=== PATIENT | female | born 1945 | race Caucasian/White ===

== ENCOUNTER 2017-08-18 08:32 | Emergency (ER) | payer MEDICARE, OTHER ==
[~2017-08-18] VITALS: Ht 170.2 cm; Wt 85.7 kg
[~2017-08-18 08:32] MED LIST: LEXAPRO10 MG PO; ULTRAM50 MG PO; XARELTO20 MG PO; Z.0.LEVOTHYROXINE50 PO; Z.0.OXYBUTYNIN CHLOR PO; Z.0.PROTONIX40 MG PO; [UNRECOGNIZED DRUG - OTHER] PO
[2017-08-18] MEDS ORDERED: MORPHINE SULFATE 4 MG/ML SYR IV STA (08:36)
[2017-08-18] MEDS ORDERED: ONDANSETRON HCL INJ 2 MG/ML VIAL IV STA (08:36)
--- OUTSIDE RECORDS SUMMARY | 2017-08-18 08:36 | XMS REPORT | Clinical Summary ---
Author Author [employer] Address Unknown Phone Unavailable Care Team Providers Care Web Development Director Name Role Phone CristyAlin PCP Allergies Active Allergy Reactions Severity Noted Date Comments Codeine Other (See Comments) High 04/09/2013 INSOMNIA Current Medications Prescription Sig. Disp. Refills Start End Date Status Date pantoprazole (PROTONIX) TK 1 T PO BID 5 12/27/19 Active 40 MG EC tablet 17 levothyroxine (SYNTHROID, TK 1 T PO QD 2 10/06/19 Active LEVOXYL) 50 mcg tablet 17 oxybutynin XL TK 1 T PO QD 2 12/17/19 Active (DITROPAN-XL) 10 MG 24 hr 17 tablet escitalopram (LEXAPRO) 10 TK 1 T PO QD 2 11/08/19 Active MG tablet 17 predniSONE (DELTASONE) 10 TK 2 T PO D FOR 4 DAYS 0 10/25/19 01/11/20 Discontin mg tablet THEN 1 AND 1/2 T D X 4 17 17 ued DAYS THEN 1 T D FOR 4 DAYS THEN STOP Active Problems Problem Noted Date Primary localized osteoarthrosis of right lower leg 05/13/2017 Resolved Problems Problem Noted Date Resolved Date Primary localized osteoarthrosis of right lower leg 01/10/2017 04/01/2017 Encounters Date Type Specialty Care Team Description 07/23/2017 Office Visit Orthopedic Surgery Jimy Donaldson MD Primary localized osteoarthrosis of right lower leg (Primary Dx) 06/12/2017 Refill Neurology Jannet Tay MD 05/13/2017 Office Visit Orthopedic Surgery Jimy Donaldson MD Primary localized osteoarthrosis of right lower leg (Primary Dx) 04/01/2017 Office Visit Orthopedic Surgery Jimy Donaldson MD Primary localized osteoarthrosis of right lower leg (Primary Dx);Mass of right wrist 01/10/2017 Office Visit Orthopedic Surgery Jimy Donaldson MD Primary localized osteoarthrosis of right lower leg (Primary Dx);Chronic pain of right knee 12/11/2016 Hospital Pulmonology Jannet Tay MD Shortness of breath Encounter 12/11/2016 Transcribe Pulmonology Jannet Tay MD Shortness of breath Orders (Primary Dx) 12/03/2016 Trans[facility] Access Jannet Tay MD Shortness of breath Orders (Primary Dx) 11/01/2016 Hospital Radiology Jannet Tay MD Shortness of Encounter breath;Disorders of diaphragm 11/01/2016 [facility] Radiology Jannet Tay MD Shortness of Encounter breath;Disorders of diaphragm 11/01/2016 [facility] Pulmonology Jannet Tay MD Breath Encounter shortness;Disorders of diaphragm 11/01/2016 [facility] Pulmonology Jannet Tay MD Breath Orders shortness;Disorders of diaphragm 10/30/2016 [facility] Jannet Stevens MD Shortness of breath Orders (Primary Dx);Disorders of diaphragm after 08/17/2016 Social History Tobacco Use Types Packs/Day Years Used Date Never Assessed Sex Assigned at Date Recorded Not on file Last Filed Vital Signs Not on file Plan of Treatment Date Type Specialty Care Team Description 11/19/2017 Office Visit Orthopedic Surgery Jimy Donaldson MD [address] [facility] [address] [place] [id number] Health Maintenance Due Date Last Done Comments COLONOSCOPY 12/17/1993 MAMMOGRAM 12/17/1993 ZOSTER VACCINE 2003 PNEUMOCOCCAL 12/17/2008 POLYSACCHARIDE VACCINE AGE 65 AND OVER PNEUMOCOCCAL-13 12/17/2008 INFLUENZA VACCINE 02/12/2017 Procedures Procedure Name Priority Date/Time Associated Diagnosis Comments IN ARTHROCENTESIS Routine 07/23/2017 Primary localized Results for this ASPIR&/INJ MAJOR JT/BURSA 10:33 AM 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 IN ARTHROCENTESIS Routine 05/13/2017 Primary localized Results for this ASPIR&/INJ MAJOR JT/BURSA 11:43 AM CDT osteoarthrosis of right procedure are in the W/O US lower leg results section. IN ARTHROCENTESIS Routine 04/01/2017 Primary localized Results for this ASPIR&/INJ MAJOR JT/BURSA 11:05 AM CDT osteoarthrosis of right procedure are in the W/O US lower leg results section. IN ARTHROCENTESIS Routine 01/10/2017 Primary localized Results for this ASPIR&/INJ MAJOR JT/BURSA 2:22 PM CDT osteoarthrosis of right procedure are in the W/O US lower leg results section. after 08/17/2016 Results * Large Joint Arthrocentesis (07/23/2017 10:33 AM) Narrative Jimy Donaldson MD 07/23/2017 10:33 AM Large Joint Arthrocentesis Consent given by: patient Site marked: site marked Timeout: Immediately prior to procedure a time out was called to verify the correct patient, procedure, equipment, applications support analyst and site/side marked as required Supporting Documentation Indications: pain Procedure Details Preparation: Patient was prepped and draped in the usual sterile fashion Ultrasound guided: no Platelet Rich Plasma Used: no PRP UsedLocation: knee - R knee Right side: Needle size: 25 G (25 gauge) Approach: anteromedial Right knee medications administered: 1 mL lidocaine 10 mg/mL (1 %); 3 mg betamethasone acetate & sodium phosphate 6 mg/mL Aspirate amount: 0 mL Patient tolerance: patient tolerated the procedure well with no immediate complications * Large Joint Arthrocentesis (05/13/2017 11:43 AM) Narrative Jimy Donaldson MD 05/13/2017 11:43 AM Large Joint Arthrocentesis Consent given by: patient Site marked: site marked Supporting Documentation Indications: pain Procedure Details Preparation: Patient was prepped and draped in the usual sterile fashion Ultrasound guided: no Platelet Rich Plasma Used: no PRP UsedLocation: knee - R knee Right side: Needle size: 22 G Approach: anteromedial Right knee medications administered: 4 mL hyaluronate sodium, stabilized 88 mg/4 mL Aspirate amount: 0 mL Patient tolerance: patient tolerated the procedure well with no immediate complications * Large Joint Arthrocentesis (04/01/2017 11:05 AM) Narrative Jimy Donaldson MD 04/01/2017 11:05 AM Large Joint Arthrocentesis Consent given by: patient Site marked: site marked Timeout: Immediately prior to procedure a time out was called to verify the correct patient, procedure, equipment, applications support analyst and site/side marked as required Supporting Documentation Indications: pain Procedure Details Preparation: Patient was prepped and draped in the usual sterile fashion Ultrasound guided: no Platelet Rich Plasma Used: no PRP UsedLocation: knee - R knee Right side: Needle size: 25 G (25 gauge) Approach: anteromedial Right knee medications administered: 1 mL lidocaine 10 mg/mL (1 %); 3 mg betamethasone acetate & sodium phosphate 6 mg/mL Aspirate amount: 0 mL Patient tolerance: patient tolerated the procedure well with no immediate complications * Large Joint Arthrocentesis (01/10/2017 2:22 PM) Narrative Jimy Donaldson MD 01/10/20172:22 PM Large Joint Arthrocentesis Consent given by: patient Site marked: site marked Timeout: Immediately prior to procedure a time out was called to verify the correct patient, procedure, equipment, applications support analyst and site/side marked as required Supporting Documentation Indications: pain Procedure Details Preparation: Patient was prepped and draped in the usual sterile fashion Ultrasound guided: no Platelet Rich Plasma Used: no PRP UsedLocation: knee - R knee Right side: Needle size: 25 G (25 gauge) Approach: anteromedial Right knee medications administered: 1 mL lidocaine 10 mg/mL (1 %); 3 mg betamethasone acet,sod phos 6 mg/mL Aspirate amount: 0 mL Patient tolerance: patient tolerated the procedure well with no immediate complications * XR Knee 4+ Vw Right (01/10/2017 1:43 PM) Specimen Performing Laboratory [facility] [address] [place] [address] Narrative X-rays of the right knee are done.PA, lateral, oblique, standing AP notch view demonstrate no fracture nor dislocation. X-rays reveal moderate arthritis of the medial compartment. X-rays reveal moderate arthritis of the lateral compartment. X-rays reveal mild arthritis of the patellofemoral compartment. There is medial femoral osteophytes, medial tibial plateau osteophytes, lateral femoral osteophytes, lateral tibial plateau osteophytes and patella osteophytes. * NM Lung Quantitative Differential Function Ventilation / Perfusion (2016 10:11 AM) Specimen Performing Laboratory [facility] [address] [place] [address] Narrative EXAMINATION: NM LUNG QUANTITATIVE DIFFERENTIAL FUNCTION VENTILATION PERFUSION CLINICAL HISTORY: R06 02 Order diagnosis - Shortness of breath Disorders of diaphragm TECHNIQUE: The patient breathed 15-20 mCi of xenon-133 gas through a closed ventilation system while dynamic imaging of the lungs was performed in the posterior and anterior projections. The patient was then injected with 5 mCi of [id number] intravenously, followed by imaging of the lungs in 8 projections. Quantitation was performed using the geometric mean of the anterior and posterior perfusion images. FINDINGS: There is a large, but likely nonsegmental perfusion defect in the medial left upper lobe, also seen on the ventilation images. QUANTITATION: Left Lung=43% Right Lung=57% IMPRESSION: 1.Low probability for pulmonary embolism. 2.Quantitation as above. [facility]-[id number] Procedure Note Interface, Radiology Results Incoming - 11/01/2016 3:52 PM CDT EXAMINATION: NM LUNG QUANTITATIVE DIFFERENTIAL FUNCTION VENTILATION PERFUSION CLINICAL HISTORY: R06 02 Order diagnosis - Shortness of breath Disorders of diaphragm TECHNIQUE: The patient breathed 15-20 mCi of xenon-133 gas through a closed ventilation system while dynamic imaging of the lungs was performed in the posterior and anterior projections. The patient was then injected with 5 mCi of [id number] intravenously, followed by imaging of the lungs in 8 projections. Quantitation was performed using the geometric mean of the anterior and posterior perfusion images. FINDINGS: There is a large, but likely nonsegmental perfusion defect in the medial left upper lobe, also seen on the ventilation images. QUANTITATION: Left Lung=43% Right Lung=57% IMPRESSION: 1.Low probability for pulmonary embolism. 2.Quantitation as above. [facility]-[id number] * FL Fluoroscopy Of Diaphragm No Films (11/01/2016 10:06 AM) Specimen Performing Laboratory [facility] [address] [place] [address] Narrative EXAMINATION:FL FLUOROSCOPY OF DIAPHRAGM NO FILMS CLINICAL HISTORY:R06 02 Order diagnosis - Shortness of breath Disorders of diaphragm COMPARISON:None. TECHNIQUE: Diaphragms were observed under fluoroscopy during quiet and deep breathing and with sniff. FLUOROSCOPIC TIME:2.9 minutes IMAGES:16 FINDINGS: There is prominent elevation of the right hemidiaphragm at baseline. This is anterior only. More posteriorly the right hemidiaphragm is normal in location. There is no significant motion of the elevated portion of the right hemidiaphragm anteriorly. This area demonstrates some paradoxical motion during sniff. More posteriorly, the right hemidiaphragm functions normally during quiet breathing, deep breathing and sniff. There is normal motion of the left hemidiaphragm throughout during quiet breathing, deep breathing and sniff. IMPRESSION: Anterior elevation of the right hemidiaphragm with additional findings as described above. Findings are most suggestive of eventration anteriorly of the right hemidiaphragm. CT can be obtained for confirmation of this finding. Normal-appearing left hemidiaphragm. [facility]-[id number] Procedure Note [facility], Radiology Results Incoming - 11/02/2016 8:34 AM CDT EXAMINATION: FL FLUOROSCOPY OF DIAPHRAGM NO FILMS CLINICAL HISTORY: R06 02 Order diagnosis - Shortness of breath Disorders of diaphragm COMPARISON: None. TECHNIQUE: Diaphragms were observed under fluoroscopy during quiet and deep breathing and with sniff. FLUOROSCOPIC TIME: 2.9 minutes IMAGES: 16 FINDINGS: There is prominent elevation of the right hemidiaphragm at baseline. This is anterior only. More posteriorly the right hemidiaphragm is normal in location. There is no significant motion of the elevated portion of the right hemidiaphragm anteriorly. This area demonstrates some paradoxical motion during sniff. More posteriorly, the right hemidiaphragm functions normally during quiet breathing, deep breathing and sniff. There is normal motion of the left hemidiaphragm throughout during quiet breathing, deep breathing and sniff. IMPRESSION: Anterior elevation of the right hemidiaphragm with additional findings as described above. Findings are most suggestive of eventration anteriorly of the right hemidiaphragm. CT can be obtained for confirmation of this finding. Normal-appearing left hemidiaphragm. [facility]-[id number] after 08/17/2016 Insurance Payer Benefit Subscriber ID Type Phone Address Plan / Group MEDICARE MEDICARE [id number] Medicare [place], [place] PART A AND B [employer] [place] [id number] [place] [address]
[2017-08-18] MEDS ORDERED: MORPHINE SULFATE 2 MG/ML SYR ONE (08:54)
[2017-08-18 09:16] LABS: BASOPHILS % 0.6 % (0.0-1.0); EOSINOPHILS # (AUTO) 0.4 (0.0-0.4); EOSINOPHILS % 5.5 % (0.0-6.0); HEMATOCRIT 39.3 % (34.2-44.1); HEMOGLOBIN 12.1 g/dL (12.0-16.0); LYMPHOCYTES % 27.9 % (18.0-39.1); MEAN CORPUSCULAR HGB CONC 30.8 g/dL (31-35); MONOCYTES # (AUTO) 0.5 (0.2-0.8); MONOCYTES % 7.1 % (4.4-11.3); NEUTROPHILS # (AUTO) 4.1 (2.1-6.9); NEUTROPHILS % 58.6 % (38.7-80.0); PLATELET COUNT 294 x10e3/uL (140-360); RED BLOOD COUNT 5.04 x10e6/uL (3.6-5.1); RED CELL DISTRIBUTION WIDTH 17.9 % (11.7-14.4)
[2017-08-18 09:26] LABS: INR 0.84; PROTHROMBIN TIME 11.9 seconds (11.9-14.5)
[2017-08-18 09:27] LABS: PARTIAL THROMBOPLASTIN TIME 28.6 seconds (23.8-35.5)
[2017-08-18 09:32] LABS: ALANINE AMINOTRANSFERASE 13 IU/L (0-55); ALBUMIN 3.4 g/dL (3.5-5.0); ALKALINE PHOSPHATASE 84 IU/L (40-150); ANION GAP 10.8 mmol/L (8-16); BLOOD UREA NITROGEN 16 mg/dL (7-26); BUN/CREATININE RATIO 23 (6-25); CALCIUM 8.2 mg/dL (8.4-10.2); CARBON DIOXIDE 23 mmol/L (22-29); CHLORIDE 110 mmol/L (98-107); CREATINE KINASE 210 IU/L (29-168); EST GLOMERULAR FILTRATION RATE > 60 ML/MIN (60-); GLUCOSE 84 mg/dL (74-118); POTASSIUM 3.8 mmol/L (3.5-5.1); SODIUM 140 mmol/L (136-145)
--- NOTE | 2017-08-18 09:36 | Diagnostic Imaging Report ---
EXAMINATION: Chest, CHEST SINGLE (PORTABLE) INDICATION: Chest pain COMPARISON: None available FINDINGS: LINES: None. Heart: Normal cardiac silhouette. Vascular: The pulmonary vasculature is within normal limits. Atherosclerotic calcifications of the aortic arch. Mediastinum: No mediastinal, hilar, or axillary mass or lymphadenopathy. Lungs: No parenchymal mass. Airspace opacity in the right lung base. Elevation of the right hemidiaphragm. Pleura: Small right pleural effusion. No pneumothorax. Bones: No acute osseous abnormality. Degenerative changes of the thoracic spine. Postoperative changes of anterior cervical spine fusion are partially visualized. Soft tissues: Normal. Impression: Airspace opacity in the right lung base may represent a developing pneumonia. Signed by: Dr. Nadeem Mohr M.D. on 08/18/2017 9:32 AM
--- NOTE | 2017-08-18 11:35 | Diagnostic Imaging Report ---
EXAM: CT Chest WITH contrast INDICATION: Chest pain COMPARISON: None available TECHNIQUE: Chest was scanned utilizing a multidetector helical scanner from the lung apex through the level of the diaphragm after administration of IV contrast. Coronal and sagittal reconstructions were submitted for interpretation. Protocol: Pulmonary embolus protocol IV CONTRAST: 100 mL of Isovue 370 COMPLICATIONS: None RADIATION DOSE: Total exam DLP: 889.9 mGy*cm. CTDIvol has been reviewed. It is below the limits set by the Radiation Protocol Committee (RPC). FINDINGS: LINES/ TUBES: None. Heart: No cardiomegaly. No pericardial effusion. Vessels: No intraluminal filling defect within the pulmonary arteries to the segmental level. Atherosclerotic calcifications of the thoracic aorta and coronary arteries. The ascending aorta measures 4.6 cm in greatest transverse diameter. No evidence of dissection. Mediastinum: No mediastinal or hilar mass or lymphadenopathy. Normal thyroid. Lungs: No parenchymal mass. No focal consolidation. Normal parenchyma. Pleura: No pleural effusion. No pneumothorax. Elevation of the right hemidiaphragm. Soft tissues: Normal. No axillary mass or lymphadenopathy. Bones: No acute osseous abnormality. Degenerative changes of the thoracic spine. Anterior cervical spine fusion hardware. Adrenal glands: No adrenal nodules.. Abdomen: The partially visualized portions of the upper abdomen are unremarkable. Cholecystectomy. Simple cyst in the right lobe of the liver. IMPRESSION: 1. No evidence of dissection. 2. Aneurysm of the ascending aorta. Signed by: Dr. Nadeem Mohr M.D. on 08/18/2017 11:31 AM
[2017-08-18] MEDS ORDERED: SODIUM CHLORIDE 0.9% 50ML 50 ML ONE (11:45)
[2017-08-18] MEDS ORDERED: IOPAMIDOL 370 MG/ML 200 ML INFUS..BTL INJ ONE (11:45)
--- NOTE | 2017-08-18 16:08 | Consultation ---
DATE OF CONSULTATION: August 18, 2017 CARDIOLOGY CONSULTATION CLINICAL HISTORY: This is a 71-year-old white woman known to me from previous evaluation seen at [facility] because of severe chest pains rated 10 on a scale of 10 lasting for over an hour associated with nausea, but without EKG or chest x-ray changes to be consistent with chest pains. Old records not available for review. According to the patient, she had a stress test many years ago but none recently. She has never had a cardiac catheterization. She denies any exertional chest discomfort. Three weeks ago she had similar pains, but did not come to the emergency room. 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 The pain is similar to the pain she has had before in the right chest, but it is now on the left side. She noticed some tenderness in the left anterior chest. The pain failed to improve until she came to the emergency room and was given morphine. EKG showed no acute changes. Chest x-ray showed right lung pathology, cannot exclude new onset of pneumonia; however, she had no fever. White count was normal at 7000. There is previous history of right lung problems. Hospitalization was recommended, but the patient was reluctant to be admitted wanting to do further testing on outpatient basis due to tax season. PAST MEDICAL HISTORY: Is remarkable for the above-mentioned conditions. FAMILY HISTORY: Please refer to previous records. REVIEW OF SYSTEMS: Negative. PHYSICAL EXAMINATION: GENERAL: She is somewhat overweight. Alert, coherent. CARDIAC: Jugular veins are not distended. S1 and S2 were regular. There is no appreciable murmurs. LUNGS: Clear. ABDOMEN: Soft. Bowel sounds are present. EXTREMITIES: No cyanosis, clubbing or edema. She does have left-sided chest tenderness but this was mild. LABORATORY DATA: Electrocardiogram shows sinus rhythm, borderline left ventricular hypertrophy, nonspecific ST changes. Chest x-ray shows the right lung pathology. White count 7000, hemoglobin 12.1. Platelet count 294,000. INR 6.8. Electrolytes . IMPRESSION 1. Severe, prolonged chest pains associated with nausea radiating to the back, consider coronary artery disease. Initial chest x-ray showed right lung pathology. EKG showed no acute changes. Cardiac enzymes are negative. 2. History of right-sided lung pains for many years with chest x-ray showing opacity in the right lung base with CTA showing no evidence of dissection, aneurysm or pulmonary embolism and no lung masses. 3. Hypothyroidism. 4. Chronic pain using tramadol. 5. Indigestion on Tapazole. RECOMMENDATION: Return to the emergency room for further chest pains. Consider stress test on an outpatient basis with nuclear imaging. Job#: [id number]
== END 2017-08-18 12:25 | disposition home or self-care (01) ==
LOC: ER 08:32
DX: R07.89 Other chest pain (principal); I71.00 Dissection of unspecified site of aorta; J98.4 Other disorders of lung; Z85.3 Personal history of malignant neoplasm of breast
CPT/HCPCS: 36415; 71010; 71275; 80053; 82550; 82553; 84484; 85025; 85610; 85730; 93005; 99284; J2270; J2405; Q9967; 71045

== ENCOUNTER → 2018-06-26 | Outpatient (CLI) | payer MEDICARE, OTHER ==
--- NOTE | 2018-06-26 13:52 | Diagnostic Imaging Report ---
EXAMINATION: PA and lateral views of the chest. COMPARISON: CT chest 08/18/2017 CLINICAL HISTORY: Unspecified asthma DISCUSSION: Lungs remain well-inflated. Unchanged right hemidiaphragmatic elevation with colonic interposition between the liver dome and diaphragm as seen on comparison CT. No focal airspace consolidation, pleural effusion, or pneumothorax. Stable cardiomediastinal contour with tortuosity of the thoracic aorta. Ectasia of the ascending thoracic aorta was noted on the comparison CT scan of the chest. Normal heart size. No overt pulmonary edema. Cervical spine fusion hardware partially visualized. No acute osseous abnormality. IMPRESSION: No acute cardiopulmonary abnormality. Ectatic ascending thoracic aorta seen to better advantage on comparison CTA 08/18/2017. Signed by: Dr. Dani Stroud M.D. on 06/26/2018 1:49 PM
== END ==
LOC: RAD 12:26
PROVIDERS: ATTEND Allergy & Immunology
DX: J45.40 Moderate persistent asthma, uncomplicated (principal)
CPT/HCPCS: 71046

== ENCOUNTER → 2019-04-15 | Outpatient (CLI) | payer MEDICARE, OTHER ==
--- NOTE | 2019-04-15 11:05 | Diagnostic Imaging Report ---
EXAMINATION: CHEST 2 VIEWS INDICATION: Asthma, bronchitis COMPARISON: Chest radiograph of 06/26/2018, chest CTA of 08/18/2017 FINDINGS: LINES/TUBES:None LUNGS:The lungs are well-inflated. Persistent elevation of the right hemidiaphragm anteriorly with colonic interposition between the liver and diaphragm. No focal consolidation or pulmonary edema. PLEURA:No pleural effusion or pneumothorax. MEDIASTINUM:The cardiomediastinal silhouette appears unchanged in size and shape. Atherosclerotic calcifications of the thoracic aorta. BONES/SOFT TISSUES:No acute osseous injury. Partial visualization of cervical spine fusion hardware. ABDOMEN:No free air under the diaphragm. IMPRESSION: No focal pneumonia or pulmonary edema. Signed by: Devora Ahuja MD on 04/15/2019 11:02 AM
== END ==
LOC: RAD 09:46
PROVIDERS: ATTEND Allergy & Immunology
DX: J45.40 Moderate persistent asthma, uncomplicated (principal)
CPT/HCPCS: 71046

== ENCOUNTER → 2019-05-21 | Outpatient (CLI) | payer MEDICARE, OTHER ==
--- NOTE | 2019-05-21 13:03 | Diagnostic Imaging Report ---
Chest, 1 view, 05/21/2019. History: PICC placement. Comparison: 04/15/2019. Findings: New left upper extremity PICC terminates in the cavoatrial junction. The cardiomediastinal silhouette and pulmonary vasculature are within normal limits for a portable exam. Right middle and lower lobe consolidation is unchanged. Are no acute osseous or soft tissue abnormalities. Impression: Left upper extremity PICC in adequate position. Signed by: Aj Edgar on 05/21/2019 12:59 PM
== END ==
LOC: DX 11:01
PROVIDERS: ATTEND Internal Medicine Infectious Disease
DX: N39.0 Urinary tract infection, site not specified (principal)
CPT/HCPCS: 36569; 71045

== ENCOUNTER → 2020-03-16 | Outpatient (CLI) | payer MEDICARE, OTHER ==
--- NOTE | 2020-03-16 09:32 | Diagnostic Imaging Report ---
TECHNIQUE: Magnetic resonance imaging of the RIGHT foot was performed WITHOUT injected contrast. HISTORY: Pain and swelling COMPARISON: None available. DISCUSSION: Bone: No focal or infiltrative bone marrow replacing abnormality. No acute fracture or osteonecrosis. Joints: Hammertoe deformities. First MTP joint degenerative arthrosis. Degenerative arthrosis of the hallux sesamoid interval with multi partite sesamoids. Scattered degenerative arthrosis the midfoot articulations. Soft Tissues: Plantar fascia unremarkable. No intermetatarsal space neuroma or bursitis. Plantar plates are intact. IMPRESSION: No acute or soft tissue abnormality. Multifocal degenerative arthrosis. Hammertoe deformities. Signed by: Dr. Luis Rockwell M.D. on 03/16/2020 9:29 AM
== END ==
LOC: MRI 08:19
PROVIDERS: ATTEND Orthopaedic Surgery
DX: M79.671 Pain in right foot (principal); M76.821 Posterior tibial tendinitis, right leg

== ENCOUNTER → 2020-04-12 | Day surgery (SDC) | payer MEDICARE, OTHER ==
[2020-04-07 10:39] LABS: BASOPHILS # (AUTO) 0.1 (0.0-0.1); BASOPHILS % 0.9 % (0.0-1.0); EOSINOPHILS # (AUTO) 0.4 (0.0-0.4); EOSINOPHILS % 5.7 % (0.0-6.0); HEMATOCRIT 43.5 % (34.2-44.1); HEMOGLOBIN 13.9 g/dL (12.0-16.0); LYMPHOCYTES # (AUTO) 2.2 (1.0-3.2); LYMPHOCYTES % 33.5 % (18.0-39.1); MEAN CORPUSCULAR HEMOGLOBIN 27.7 pg (28-32); MEAN CORPUSCULAR VOLUME 86.8 fL (81-99); MONOCYTES # (AUTO) 0.4 (0.2-0.8); MONOCYTES % 6.6 % (4.4-11.3); NEUTROPHILS # (AUTO) 3.4 (2.1-6.9); NEUTROPHILS % 53.1 % (38.7-80.0); PLATELET COUNT 281 x10e3/uL (140-360); RED BLOOD COUNT 5.01 x10e6/uL (3.6-5.1); RED CELL DISTRIBUTION WIDTH 14.9 % (11.7-14.4)
[2020-04-07 10:55] LABS: ANION GAP 14.6 mmol/L (8-16); BLOOD UREA NITROGEN 8 mg/dL (7-26); BUN/CREATININE RATIO 12 (6-25); CALCIUM 8.4 mg/dL (8.4-10.2); CARBON DIOXIDE 25 mmol/L (22-29); CHLORIDE 107 mmol/L (98-107); CREATININE, SERUM 0.69 mg/dL (0.57-1.11); EST GLOMERULAR FILTRATION RATE > 60 ML/MIN (60-); GLUCOSE 96 mg/dL (74-118); POTASSIUM 4.6 mmol/L (3.5-5.1); SODIUM 142 mmol/L (136-145)
--- NOTE | 2020-04-07 11:53 | Diagnostic Imaging Report ---
Exam: CHEST 2 VIEWS Date: 04/07/2020 11:49 AM INDICATION: ^[id number] ^1100 ^PRE OP Comparison: 05/21/2019 FINDINGS: Lines/Tubes:None Lungs:The lungs are well inflated. No focal consolidation or pulmonary edema. Stable right hemidiaphragm elevation. Pleura:No pleural effusion. No pneumothorax. Heart/Mediastinum:The cardiomediastinal silhouette is normal in size and contour. Stable tortuous thoracic aorta. Bones/Soft Tissues: No acute osseous abnormality. Stable partially visualized cervical fusion changes. Upper abdomen: Unremarkable. IMPRESSION: Negative for acute intrathoracic process. Stable right hemidiaphragm elevation. Signed by: Hung Dominique MD on 04/07/2020 11:50 AM
[~2020-04-12] MED LIST changes: +BREO ELLIPTA 11 EACH; +BUPIVACAINE HCL 0.5% INJ 30 ML VIAL INJ ONE; +CEFAZOLIN SOD 1 GM/NS 50ML 100 ML IV ONE; +DEXAMETHASONE SOD PHOS INJ 4 MG/ML VIAL ONE; +EPINEPHRINE 1 MG/ML 30ML VIAL ONE; +FAMOTIDINE 20 MG/2 ML VIAL IV ONE; +FENTANYL CITRATE/PF 100MCG/2 ML INJ ONE; +KETOROLAC TROMETHAMINE 30 MG/ML VIAL ONE; +LIDOCAINE HCL 2% LOCAL INJ 5 ML SDV VIAL INJ ONE; +METHENAMINE MA500 MG; +METOCLOPRAMIDE HCL 10 MG/2ML VIAL ONE; +MIDAZOLAM HCL 2 MG/2 ML VIAL ONE; +MYRBETRIQ25 MG; +ONDANSETRON HCL INJ 2MG/ML 2ML 2 MG/ML VIAL ONE; +PRO AIR; +PROPOFOL IV EMULSION 10 MG/ML 20 ML VIAL ONE; +SEVOFLURANE INHAL SOLN 250 ML PEN BTL ONE; +SODIUM CHLORIDE 0.9% 50ML 50 ML ONE; +TRIAMCINOLONE ACET 40 MG/ML VIAL ONE; +[UNRECOGNIZED DRUG - OTHER]
[2020-04-12 08:10] VITALS: BP 129/77
--- NOTE | 2020-04-13 01:18 | Operative Report ---
DATE OF PROCEDURE: 04/12/2020 SURGEON: JEANNA GUERRA MD LOCATION: [facility] of surgery is [facility]. HISTORY: Ms. Subramanian is a 74-year-old female, who I have been following in the [facility]opedic [facility] for ongoing pain of her right knee secondary to tricompartmental arthritic changes with overlying tears involving both medial meniscus as well as lateral meniscus symptoms. The patient had elected to forgo any further conservative treatment and she wants to proceed on with a right knee arthroscopy in lieu of a right total knee arthroplasty . The risks and benefits of surgery did outline to her consisting, but not limited to following: Infection, blood loss, nerve, vessel, or tendon injury, DVT, ongoing pain, stiffness. She is also made aware that the arthroscopy itself may not resolve all of the pain symptoms secondary to the arthritic changes and that if she continues to have any ongoing pain or discomfort that she may require a knee arthroplasty. The patient was seen and identified in the preoperative holding area. The right knee was marked by myself. The risks and benefits as noted above were again conveyed to the patient. All questions were answered to her full complete satisfaction and she verbalizes full understanding. The patient was then brought back to the operative suite, placed supine on the operative table. Time-out was taken for Ms. Marleny Subramanian for diagnostic arthroscopy of her right knee. All were in agreement including nursing staff, Anesthesia, and myself. The patient was then given a successful drain intubation anesthetic and then transferred over to the operative table. A nonsterile tourniquet was placed high in the right upper thigh. The right lower extremity was then sterilely prepped and draped in the usual standard fashion. The limb was exsanguinated. Tourniquet was inflated to approximately 225 to 250 mmHg. A 15 Bard-Arnel blade was then used to make the vertical portal incisions well outside the borders of the patellar tendon along the medial and lateral joint line respectively. Examination of the intercondylar notch shows marked multiple rice loose bodies floating throughout all three compartments. I went ahead and made an accessory superomedial portal to assist in removal of the rice loose bodies and these were removed from the medial, lateral, as well as the patellofemoral compartment. The rice loose bodies ranged from 2-3 mm in size to as large as 5-6 mm. They were removed using the arthroscopic grasper and shaver. Medial compartment: Examination of the medial compartment shows significant grade 3 changes to the medial femoral condyle with a complex tear of the medial meniscus involving the midbody extending into the posterior horn. A partial medial meniscectomy was then completed using the meniscal biters. The tear was removed and the meniscus was taken down to a stable rim. Upon probing the meniscus, remaining meniscus was found to be stable throughout the posterior horn midbody anterior and anterior horn. Attention then turned to the fibrillated cartilage and fissuring of the condyles. The patient had cartilage delamination with grade 3 changes. Upon which time, a 4.0 shaver was then used to complete the chondroplasty of both the medial femoral condyle and medial tibial plateau, taking them down to smooth contoured surface. Attention was then turned to the patellofemoral joint. The patellofemoral joint shows grade 2-3 changes of the knee with the worst being the medial facet. She had grade 2-3 changes of the femoral groove. Upon which time, the 4.0 shaver was then used to both the medial and lateral portals to complete the chondroplasty removing the fibrillated cartilage, taking them down to a smooth contoured surface. The remaining villonodular synovitis was removed. The villonodular synovitis and synovectomy were removed to both medial and lateral compartments as well using the 4.0 shaver through both medial and lateral portals. Attention was then turned to the lateral compartment. The lateral compartment shows some mild fraying along the peripheral rim, but no definitive tears of the lateral meniscus. She did have a grade 2-3 changes to the lateral femoral condyle and tibial plateau. A chondroplasty was completed removing the fibrillated and delaminated cartilage taking them down to a smooth contoured surface. Copious irrigation was then carried out of the entire knee. One last exploration revealed no signs of rice loose bodies. The knee was then injected with a KIERSTEN injection, cocktail mixture of 40 mg of Kenalog, 30 mg of Toradol and Marcaine and the cocktail mixture was injected into the right knee under sterile technique. The knee portals were then closed using 4-0 nylon suture in an interrupted fashion, and Xeroform compressive dressing was applied. The patient was then successfully extubated, transferred to PACU in stable condition. PREOPERATIVE DIAGNOSES: 1. Degenerative joint disease of the right knee. 2. Complex tear of the right medial meniscus of the right knee with the lateral meniscus symptoms. POSTOPERATIVE DIAGNOSES: 1. [id number] tricompartmental degenerative joint disease of the right knee. 2. Complex tear of the right medial meniscus. 3. Villonodular synovitis of the right knee, tricompartmental. 4. Multiple rice loose bodies of the right knee. PROCEDURES: 1. Diagnostic arthroscopy of the right knee with a right knee chondroplasty x3 compartments. 2. Right knee arthroscopy with synovectomy for villonodular synovitis of the right knee, tricompartmental of all three compartments. 3. Partial medial meniscectomy of the right knee for complex tear of the right medial meniscus. 4. Removal of multiple rice loose bodies of the right knee 2-3 mm to as large as 5-6 mm in size. 5. KIERSTEN injection of the right knee. ANESTHESIA: General. ESTIMATED BLOOD LOSS: Less than 10 mL. SPECIMENS: Rice bodies synovium and loose cartilage. COMPLICATIONS: None. CONDITION: Stable to PACU. INTRAOPERATIVE FINDINGS: 1. Severe tricompartmental degenerative joint disease of the right knee, villonodular synovitis and minimally. 2. Villonodular synovitis of right knee. 3. Multiple rice loose bodies of right knee. 4. Complex tear of the right medial meniscus. The patient was seen in PACU. Dressings were clean and dry. Capillary refills were brisk. The intraoperative findings were reviewed and discussed with her family. Discharge wound care instructions were given. The patient is to weightbear as tolerated with walker. The patient was discharged home with Keflex as well as Joseph. The patient asked to follow up in Orthopedic Clinic in 10-12 days. Discharge and wound care instructions were discussed with the nursing staff as well. MD NARCISO KYLE/REMBERTO /[id number]
== END | disposition home or self-care (01) ==
LOC: OR 05:00
PROVIDERS: ATTEND Orthopaedic Surgery
DX: S83.231A Complex tear of medial meniscus, current injury, right knee, initial encounter (principal); S83.271A Complex tear of lateral meniscus, current injury, right knee, initial encounter; M17.11 Unilateral primary osteoarthritis, right knee; M22.41 Chondromalacia patellae, right knee; M76.821 Posterior tibial tendinitis, right leg; M67.471 Ganglion, right ankle and foot; M19.071 Primary osteoarthritis, right ankle and foot; E03.9 Hypothyroidism, unspecified; I71.4 Abdominal aortic aneurysm, without rupture; K21.9 Gastro-esophageal reflux disease without esophagitis; N39.0 Urinary tract infection, site not specified; E66.09 Other obesity due to excess calories; F41.9 Anxiety disorder, unspecified; Z88.6 Allergy status to analgesic agent; Z88.1 Allergy status to other antibiotic agents; Z01.810 Encounter for preprocedural cardiovascular examination; Z01.812 Encounter for preprocedural laboratory examination; Z01.818 Encounter for other preprocedural examination; Z11.59 Encounter for screening for other viral diseases; Z68.30 Body mass index [BMI] 30.0-30.9, adult
CPT/HCPCS: 29876; 29881; 36415; 71046; 80048; 85025; 93005; J0690; J1100; J1885; J2001; J2250; J2405; J2704; J2765; J3010; J3301; U0002

== ENCOUNTER → 2020-05-25 | Outpatient (CLI) | payer MEDICARE, OTHER ==
[~2020-05-25] MED LIST changes: -BUPIVACAINE HCL 0.5% INJ 30 ML VIAL INJ ONE; -CEFAZOLIN SOD 1 GM/NS 50ML 100 ML IV ONE; -DEXAMETHASONE SOD PHOS INJ 4 MG/ML VIAL ONE; -EPINEPHRINE 1 MG/ML 30ML VIAL ONE; -FAMOTIDINE 20 MG/2 ML VIAL IV ONE; -FENTANYL CITRATE/PF 100MCG/2 ML INJ ONE; +IOPAMIDOL 370 MG/ML 200 ML INFUS..BTL INJ ONE; -KETOROLAC TROMETHAMINE 30 MG/ML VIAL ONE; -LIDOCAINE HCL 2% LOCAL INJ 5 ML SDV VIAL INJ ONE; -METOCLOPRAMIDE HCL 10 MG/2ML VIAL ONE; -MIDAZOLAM HCL 2 MG/2 ML VIAL ONE; -ONDANSETRON HCL INJ 2MG/ML 2ML 2 MG/ML VIAL ONE; -PROPOFOL IV EMULSION 10 MG/ML 20 ML VIAL ONE; -SEVOFLURANE INHAL SOLN 250 ML PEN BTL ONE; +SODIUM CHLORIDE 0.9% 100 ML ONE; -SODIUM CHLORIDE 0.9% 50ML 50 ML ONE; -TRIAMCINOLONE ACET 40 MG/ML VIAL ONE
[2020-05-25 14:04] LABS: BLOOD UREA NITROGEN 9 mg/dL (7-26); BUN/CREATININE RATIO 14 (6-25); CREATININE, SERUM 0.63 mg/dL (0.57-1.11); EST GLOMERULAR FILTRATION RATE > 60 ML/MIN (60-)
--- NOTE | 2020-05-25 15:09 | Diagnostic Imaging Report ---
CTA of the chest, with contrast. History: History of aortic aneurysm, unspecified. Comparison: Chest x-ray 04/07/2020. Technique: Multidetector CT scanning of the chest was performed from the level of the thoracic inlet to the upper abdomen after intravenous administration of contrast. No oral contrast was given. Coronal and sagittal multiplanar and MIP reformations were obtained. RADIATION DOSE: Total DLP: 510 mGy*cm Dose modulation, iterative reconstruction, and/or weight based adjustment of the mA/kV was utilized to reduce the radiation dose to as low as reasonably achievable. Findings: Aorta and proximal branches: Aortic root is normal in size. A tricuspid aortic valve is present. There is no evidence of intramural or periaortic hematoma. There is preservation of the sinotubular junction. There is no evidence of dissection. The innominate, proximal subclavian, and common carotid arteries are normal in branching order and size. Slight smooth focal bulge in the anteromedial aspect of the aortic isthmus is consistent with a ductus diverticulum. The aortic arch and descending thoracic aorta are normal in size. There is tortuosity of the descending thoracic aorta. Measurements of the aorta are as follows: 2.2 cm at the aortic root, 3.5 cm at the sinuses of Valsalva, 4.5 cm in the mid ascending aorta, 3.9 cm in the distal ascending aorta, 3.2 cm in the mid aortic arch, 3.1 cm in the proximal descending aorta, 2.7 cm in the mid descending aorta, 2.4 cm at the level of the diaphragmatic hiatus. Chest: The atria, ventricles, and pulmonary vessels are normal in size. There is calcification of the coronary arteries. The mediastinum is normal without evidence of adenopathy. The thyroid is unremarkable. Minimal biapical pleural thickening and scarring are present. There is marked elevation of the right hemidiaphragm with adjacent right lower lobe atelectasis. The lungs are otherwise normal without evidence of consolidation or pleural effusion. The soft tissues and osseous structures are intact. Limited evaluation of the upper abdomen demonstrates normal adrenal glands. A simple cyst is noted in the left hepatic lobe. IMPRESSION: 1. Ectasia of the ascending thoracic aorta measuring up to 4.5 cm, without evidence of aneurysm or dissection. 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 2. Marked elevation of the right hemidiaphragm with adjacent atelectasis. Signed by: Aj Edgar on 05/25/2020 3:05 PM
== END ==
LOC: CT 13:21
PROVIDERS: ATTEND Internal Medicine Cardiovascular Disease
DX: I77.810 Thoracic aortic ectasia (principal)
CPT/HCPCS: 36415; 71275; 82565; 84520; J7050; Q9967

== ENCOUNTER → 2021-05-16 | Outpatient (CLI) | payer MEDICARE, OTHER ==
[~2021-05-16] MED LIST changes: -IOPAMIDOL 370 MG/ML 200 ML INFUS..BTL INJ ONE; -SODIUM CHLORIDE 0.9% 100 ML ONE
[2021-05-16 10:56] LABS: BASOPHILS # (AUTO) 0.1 (0.0-0.1); EOSINOPHILS # (AUTO) 0.4 (0.0-0.4); EOSINOPHILS % 6.6 % (0.0-6.0); HEMATOCRIT 42.5 % (34.2-44.1); HEMOGLOBIN 13.2 g/dL (12.0-16.0); LYMPHOCYTES # (AUTO) 1.6 (1.0-3.2); LYMPHOCYTES % 26.1 % (18.0-39.1); MEAN CORPUSCULAR HGB CONC 31.1 g/dL (31-35); MEAN CORPUSCULAR VOLUME 87.1 fL (81-99); MONOCYTES # (AUTO) 0.4 (0.2-0.8); MONOCYTES % 7.4 % (4.4-11.3); NEUTROPHILS # (AUTO) 3.5 (2.1-6.9); NEUTROPHILS % 58.7 % (38.7-80.0); PLATELET COUNT 280 x10e3/uL (140-360); RED BLOOD COUNT 4.88 x10e6/uL (3.6-5.1); RED CELL DISTRIBUTION WIDTH 15.3 % (11.7-14.4)
[2021-05-16 11:10] LABS: ALBUMIN 3.7 g/dL (3.5-5.0); ALBUMIN/GLOBULIN RATIO 1.2 (0.8-2.0); CALCIUM 8.3 mg/dL (8.4-10.2); CREATININE, SERUM 0.68 mg/dL (0.57-1.11)
== END ==
LOC: RAD 09:29
PROVIDERS: ATTEND Internal Medicine Pulmonary Disease
DX: J45.41 Moderate persistent asthma with (acute) exacerbation (principal); R06.02 Shortness of breath; R60.9 Edema, unspecified
CPT/HCPCS: 36415; 80053; 83880; 85025; 85379; 93970

== ENCOUNTER → 2021-05-17 | Outpatient (CLI) | payer MEDICARE, OTHER ==
[~2021-05-17] MED LIST changes: +IOPAMIDOL 370 MG/ML 200 ML INFUS..BTL INJ ONE; +SODIUM CHLORIDE 0.9% 50ML 50 ML ONE
== END ==
LOC: CT 07:20
PROVIDERS: ATTEND Internal Medicine Pulmonary Disease
DX: J45.41 Moderate persistent asthma with (acute) exacerbation (principal); R60.9 Edema, unspecified; R06.02 Shortness of breath
CPT/HCPCS: 71260; Q9967

== ENCOUNTER → 2021-12-13 | Outpatient (CLI) | payer MEDICARE, OTHER ==
[~2021-12-13] MED LIST changes: -IOPAMIDOL 370 MG/ML 200 ML INFUS..BTL INJ ONE; -SODIUM CHLORIDE 0.9% 50ML 50 ML ONE
== END ==
LOC: RAD 10:32
PROVIDERS: ATTEND Internal Medicine
DX: R06.02 Shortness of breath (principal)
CPT/HCPCS: 71046

== ENCOUNTER → 2022-04-20 | Outpatient (CLI) | payer MEDICARE, OTHER ==
[~2022-04-20] MED LIST changes: +IOPAMIDOL 370 MG/ML 100 ML INFUS..BTL INJ ONE; +SODIUM CHLORIDE 0.9% 100 ML ONE
[2022-04-20 11:22] LABS: CREATININE, SERUM 0.69 mg/dL (0.57-1.11)
== END ==
LOC: NM 10:29
PROVIDERS: ATTEND Internal Medicine
DX: I71.21 Aneurysm of the ascending aorta, without rupture (principal); R79.1 Abnormal coagulation profile
CPT/HCPCS: 36415; 71275; 78580; 82565; 84520; A9540; J7050; Q9967

== ENCOUNTER 2024-09-06 21:14 | Inpatient (IN) | payer MEDICARE, OTHER ==
[~2024-09-06] VITALS: Ht 167.6 cm; Wt 79.8 kg
[~2024-09-06 21:14] MED LIST changes: +ACETAMINOPHEN325 M1 PO; +ACULAR5 ML OP; +ACYCLOVIR200 MG PO; +AMBIEN5 MG PO; +ASCORBIC ACID500 MG PO; +CEFUROXIME250 MG PO; +ELIQUIS5 MG PO; -IOPAMIDOL 370 MG/ML 100 ML INFUS..BTL INJ ONE; +LOPRESSOR25 MG PO; +SERTRALINE HCL50 MG PO; -SODIUM CHLORIDE 0.9% 100 ML ONE; +SYNTHROID75 MCG PO; +XYZAL5 MG
[2024-09-06 21:20] VITALS: TEMP 99.4
[2024-09-06] MEDS ORDERED: SODIUM CHLORIDE 0.9% 1000ML 1,000 ML IV ONE (22:00)
[2024-09-06 22:03] LABS: BASOPHILS % 0.6 % (0.0-1.0); HEMATOCRIT 34.2 % (34.2-44.1); HEMOGLOBIN 11.5 g/dL (12.0-16.0); LYMPHOCYTES # (AUTO) 0.5 (1.0-3.2); LYMPHOCYTES % 15.2 % (18.0-39.1); MEAN CORPUSCULAR HEMOGLOBIN 29.5 pg (28-32); MEAN CORPUSCULAR HGB CONC 33.6 g/dL (31-35); MEAN CORPUSCULAR VOLUME 87.7 fL (81-99); MONOCYTES # (AUTO) 0.3 (0.2-0.8); MONOCYTES % 8.9 % (4.4-11.3); NEUTROPHILS # (AUTO) 2.1 (2.1-6.9); NEUTROPHILS % 67.3 % (38.7-80.0); PLATELET COUNT 185 x10e3/uL (140-360); RED CELL DISTRIBUTION WIDTH 14.1 % (11.7-14.4); WHITE BLOOD COUNT 3.15 x10e3/uL (4.8-10.8)
[2024-09-06 22:20] LABS: ALBUMIN 2.9 g/dL (3.5-5.0); ANION GAP 16.1 mmol/L (8-16); BILIRUBIN,TOTAL 1.4 mg/dL (0.2-1.2); CALCIUM 8.6 mg/dL (8.4-10.2); CREATININE, SERUM 0.68 mg/dL (0.57-1.11); TOTAL PROTEIN 5.7 g/dL (6.5-8.1)
[2024-09-06 22:32] LABS: CORONAVIRUS COVID-19 AG POSITIVE (NEGATIVE); INFLUENZA A AG NEGATIVE (NEGATIVE); INFLUENZA B AG NEGATIVE (NEGATIVE)
[2024-09-06 22:33] LABS: POTASSIUM 3.1 mmol/L (3.5-5.1)
[2024-09-06] MEDS: ACETAMINOPHEN 325 MG TAB PO ONE (22:45)
[2024-09-07] VITALS (15 sets, daily range): BP systolic 104–118; BP diastolic 66–87; PULSE 71–100; RESP 18–23; TEMP 97.4–98.8; O2SAT 95–100
[2024-09-07] MEDS ORDERED: SODIUM CHLORIDE FLUSH 10 ML SYR INJ PRN (00:15)
[2024-09-07] MEDS: ALBUTEROL SULF 0.083% NEB SOLN 3 ML NEB NEB SCH (01:23)
[2024-09-07] MEDS ORDERED: ACETAMINOPHEN 325 MG TAB PO PRN (02:00)
[2024-09-07] MEDS: IPRATROPIUM BROMIDE 0.02% 2.5 ML NEB NEB SCH (06:52)
[2024-09-07 07:29] LABS: TROPONIN I 0.003 ng/mL (0-0.300)
[2024-09-07] MEDS: METHYLPREDNISOLONE SOD SUCC 40 MG/ML VIAL 1ML IV SCH (08:08)
[2024-09-07] MEDS ORDERED: TRAMADOL HCL 50 MG TAB PO PRN (15:15)
[2024-09-07] MEDS: ASCORBIC ACID 500 MG TAB PO SCH (16:33)
[2024-09-07] MEDS: APIXABAN 5 MG TABLET PO SCH (16:33)
[2024-09-07] MEDS: METOPROLOL TARTRATE 25 MG TAB PO SCH (16:33)
[2024-09-07 17:22] LABS: TROPONIN I 0.001 ng/mL (0-0.300)
[2024-09-07] MEDS: ZOLPIDEM TARTRATE 5 MG TAB PO PRN (20:51)
[2024-09-08] VITALS (13 sets, daily range): BP systolic 108–145; BP diastolic 70–89; PULSE 72–89; RESP 18–20; TEMP 97.6–99; O2SAT 92–98
[2024-09-08] MEDS: IPRATROPIUM BROMIDE 0.02% 2.5 ML NEB ONE (03:24)
[2024-09-08] MEDS: LEVOTHYROXINE SODIUM 75 MCG TAB PO SCH (05:28)
[2024-09-08 06:57] LABS: BASOPHILS % 0.7 % (0.0-1.0); HEMOGLOBIN 10.3 g/dL (12.0-16.0); LYMPHOCYTES # (AUTO) 0.2 (1.0-3.2); MEAN CORPUSCULAR HEMOGLOBIN 28.8 pg (28-32); MEAN CORPUSCULAR HGB CONC 33.2 g/dL (31-35); MEAN CORPUSCULAR VOLUME 86.6 fL (81-99); MONOCYTES # (AUTO) 0.2 (0.2-0.8); NEUTROPHILS # (AUTO) 2.1 (2.1-6.9); NEUTROPHILS % 76.4 % (38.7-80.0); PLATELET COUNT 187 x10e3/uL (140-360); RED BLOOD COUNT 3.58 x10e6/uL (3.6-5.1); RED CELL DISTRIBUTION WIDTH 13.7 % (11.7-14.4); WHITE BLOOD COUNT 2.71 x10e3/uL (4.8-10.8)
[2024-09-08 07:21] LABS: ALBUMIN 2.5 g/dL (3.5-5.0); ALBUMIN/GLOBULIN RATIO 0.8 (0.8-2.0); ANION GAP 14.9 mmol/L (8-16); BILIRUBIN,TOTAL 0.4 mg/dL (0.2-1.2); CALCIUM 8.4 mg/dL (8.4-10.2); CREATININE, SERUM 0.59 mg/dL (0.57-1.11); TOTAL PROTEIN 5.6 g/dL (6.5-8.1)
[2024-09-08 07:23] LABS: POTASSIUM 2.9 mmol/L (3.5-5.1)
[2024-09-08 07:37] LABS: CREATINE KINASE 165 IU/L (29-168)
[2024-09-08 07:44] LABS: TROPONIN I < 0.001 ng/mL (0-0.300)
[2024-09-08] MEDS: OXYBUTYNIN CHLORIDE 5 MG TAB PO SCH (10:09)
[2024-09-08] MEDS: PANTOPRAZOLE SOD 40 MG TABEC PO SCH (10:10)
[2024-09-08] MEDS: APIXABAN 2.5 MG TABLET PO SCH (10:10)
[2024-09-08] MEDS: SERTRALINE HCL 50 MG TAB PO SCH (10:10)
[2024-09-08] MEDS: NIRMATRELVIR PO SCH (10:11)
[2024-09-08] MEDS: RITONAVIR PO SCH (10:11)
[2024-09-08] MEDS: SODIUM CHLORIDE 0.9% 250ML 250 ML ONE (12:01)
[2024-09-08] MEDS: POTASSIUM CHLORIDE 20MEQ/100ML 100 ML IV SCH (12:11)
[2024-09-08] MEDS: POTASSIUM CHLORIDE 20 MEQ TAB CR PO ONE (12:12)
[2024-09-08 12:49] LABS: BAND NEUTROPHILS % (MANUAL) 4 %; LYMPHOCYTES % (MANUAL) 8 % (19-48); MONOCYTES % (MANUAL) 5 % (3.4-9.0); MYELOCYTES % (MANUAL) 2 % (0-0); NEUTROPHILS % (MANUAL) 81 % (40-74); PLATELET ESTIMATE ADEQUATE; PLATELET MORPHOLOGY COMMENT NORMAL; RBC MORPHOLOGY COMMENT NORMAL
[2024-09-08] MEDS: GUAIFENESIN 600MG/DEXTROMETHORPHAN 30MG TABSR PO PRN (21:35)
[2024-09-09] VITALS (13 sets, daily range): BP systolic 109–136; BP diastolic 54–85; PULSE 66–79; RESP 18–22; TEMP 97.1–98.7; O2SAT 94–98
[2024-09-09] MEDS: POTASSIUM CHLORIDE 20 MEQ TAB CR PO SCH (00:26)
[2024-09-09 05:45] LABS: BASOPHILS # (AUTO) 0.1 (0.0-0.1); BASOPHILS % 1.5 % (0.0-1.0); HEMATOCRIT 33.6 % (34.2-44.1); LYMPHOCYTES # (AUTO) 0.3 (1.0-3.2); LYMPHOCYTES % 5.4 % (18.0-39.1); MEAN CORPUSCULAR HEMOGLOBIN 29.3 pg (28-32); MEAN CORPUSCULAR HGB CONC 32.7 g/dL (31-35); MEAN CORPUSCULAR VOLUME 89.4 fL (81-99); MONOCYTES # (AUTO) 0.3 (0.2-0.8); MONOCYTES % 5.4 % (4.4-11.3); NEUTROPHILS # (AUTO) 3.8 (2.1-6.9); NEUTROPHILS % 79.3 % (38.7-80.0); PLATELET COUNT 225 x10e3/uL (140-360); RED BLOOD COUNT 3.76 x10e6/uL (3.6-5.1); WHITE BLOOD COUNT 4.79 x10e3/uL (4.8-10.8)
[2024-09-09 06:12] LABS: ALBUMIN 2.7 g/dL (3.5-5.0); ALBUMIN/GLOBULIN RATIO 0.9 (0.8-2.0); ANION GAP 15.5 mmol/L (8-16); BILIRUBIN,TOTAL 0.4 mg/dL (0.2-1.2); CREATININE, SERUM 0.61 mg/dL (0.57-1.11); POTASSIUM 4.5 mmol/L (3.5-5.1); TOTAL PROTEIN 5.8 g/dL (6.5-8.1)
[2024-09-09 06:35] LABS: THYROID STIMULATING HORMONE 0.385 uIU/mL (0.350-4.940)
[2024-09-09 07:41] LABS: BAND NEUTROPHILS % (MANUAL) 5 %; LYMPHOCYTES % (MANUAL) 3 % (19-48); MONOCYTES % (MANUAL) 4 % (3.4-9.0); NEUTROPHILS % (MANUAL) 88 % (40-74); PLATELET ESTIMATE ADEQUATE; PLATELET MORPHOLOGY COMMENT NORMAL; TOXIC GRANULATION MODERATE
[2024-09-10] VITALS (10 sets, daily range): BP systolic 113–133; BP diastolic 72–82; PULSE 70–90; RESP 18–21; TEMP 97.4; O2SAT 96–100
[2024-09-10 07:24] LABS: BASOPHILS # (AUTO) 0.1 (0.0-0.1); HEMOGLOBIN 10.7 g/dL (12.0-16.0); LYMPHOCYTES # (AUTO) 0.3 (1.0-3.2); LYMPHOCYTES % 4.6 % (18.0-39.1); MEAN CORPUSCULAR HEMOGLOBIN 28.7 pg (28-32); MEAN CORPUSCULAR HGB CONC 32.4 g/dL (31-35); MEAN CORPUSCULAR VOLUME 88.5 fL (81-99); MONOCYTES # (AUTO) 0.3 (0.2-0.8); MONOCYTES % 4.3 % (4.4-11.3); NEUTROPHILS # (AUTO) 4.6 (2.1-6.9); NEUTROPHILS % 79.8 % (38.7-80.0); PLATELET COUNT 252 x10e3/uL (140-360); RED BLOOD COUNT 3.73 x10e6/uL (3.6-5.1); RED CELL DISTRIBUTION WIDTH 14.3 % (11.7-14.4); WHITE BLOOD COUNT 5.82 x10e3/uL (4.8-10.8)
[2024-09-10 07:51] LABS: ALBUMIN 2.6 g/dL (3.5-5.0); ANION GAP 14.2 mmol/L (8-16); BILIRUBIN,TOTAL 0.4 mg/dL (0.2-1.2); CALCIUM 8.4 mg/dL (8.4-10.2); CREATININE, SERUM 0.56 mg/dL (0.57-1.11); POTASSIUM 4.2 mmol/L (3.5-5.1); TOTAL PROTEIN 5.3 g/dL (6.5-8.1)
[2024-09-10 10:53] LABS: LYMPHOCYTES % (MANUAL) 5 % (19-48); METAMYELOCYTES % (MANUAL) 1 % (0-0); MONOCYTES % (MANUAL) 6 % (3.4-9.0); NEUTROPHILS % (MANUAL) 88 % (40-74); PLATELET ESTIMATE ADEQUATE; PLATELET MORPHOLOGY COMMENT NORMAL; RBC MORPHOLOGY COMMENT NORMAL
[2024-09-10] MEDS ORDERED: ALBUTEROL2.5 MG/3 M NEB (13:31)
[2024-09-10] MEDS ORDERED: IPRATROPIU0.2 MG/1 M NEB (13:31)
[2024-09-10] MEDS ORDERED: ZITHROMAX500 MG PO (13:31)
[2024-09-10] MEDS ORDERED: MUCINEX DM ER1 EACH PO (13:31)
[2024-09-10] MEDS ORDERED: CEFUROXIME250 MG PO (13:31)
[2024-09-16] MEDS ORDERED: APIXABAN 5 MG TABLET PO SCH (09:00)
== END 2024-09-10 14:30 | disposition home or self-care (01) | DRG 177 ==
LOC: ER 21:48 → ERHOLD 09-07 00:13 → MED/SURG3 09-07 01:40
PROVIDERS: ADMIT Internal Medicine; ATTEND Internal Medicine
DX: U07.1 COVID-19 (principal); J12.82 Pneumonia due to coronavirus disease 2019; C85.90 Non-Hodgkin lymphoma, unspecified, unspecified site; D84.821 Immunodeficiency due to drugs; T45.1X5A Adverse effect of antineoplastic and immunosuppressive drugs, initial encounter; R09.02 Hypoxemia; Z92.21 Personal history of antineoplastic chemotherapy; I10 Essential (primary) hypertension; E03.9 Hypothyroidism, unspecified; Z11.52 Encounter for screening for COVID-19; Z85.3 Personal history of malignant neoplasm of breast; Z86.718 Personal history of other venous thrombosis and embolism; Z79.01 Long term (current) use of anticoagulants; Z79.899 Other long term (current) drug therapy
CPT/HCPCS: 36415; 71045; 80053; 82550; 83605; 83880; 84443; 84484; 85025; 87040; 93005; 94640; 94760; 94799; 99284; J0696; J2919; J3480; J7050